=== PATIENT | female | born 1985 | race Caucasian/White ===

== ENCOUNTER 2016-07-13 17:30 | Emergency (ER) | payer MEDICAID ==
[2016-07-13] MEDS ORDERED: IBUPROFEN 800 MG TABLET PO ONE (17:38)
--- NOTE | 2016-07-13 17:38 | ER Document Report ---
ED Medical Screen (RME) - General Stated Complaint: BACK PAIN Notes: patient is a 31 year old female p/w low back pain worse with movement, taking muscle relaxer and naproxen. she denies any urinary symptoms, h/o kidney stones. I have greeted and performed a rapid initial assessment of this patient. A comprehensive ED assessment and evaluation of the patient, analysis of test results and completion of the medical decision making process will be conducted by additional ED providers. - Related Data Allergies/Adverse Reactions: No Known Allergies Allergy (Verified 07/13/16 17:36) Physical Exam - Vital signs Vitals: Temp Pulse Resp BP Pulse Ox 98.5 F 77 14 145/83 H 99 07/13/16 17:33 07/13/16 17:33 07/13/16 17:33 07/13/16 17:33 07/13/16 17:33 Course - Vital Signs Vital signs: Temp Pulse Resp BP Pulse Ox 98.5 F 77 14 145/83 H 99 07/13/16 17:33 07/13/16 17:33 07/13/16 17:33 07/13/16 17:33 07/13/16 17:33
[2016-07-13 18:11] LABS: APPEARANCE,URINE SLIGHTLY-CLOUDY; BILIRUBIN,URINE NEGATIVE (NEGATIVE); GLUCOSE, URINE NEGATIVE (NEGATIVE); KETONES,URINE NEGATIVE (NEGATIVE); LEUKOCYTE ESTERASE,URINE NEGATIVE (NEGATIVE); NITRITE,URINE NEGATIVE (NEGATIVE); PROTEIN,URINE NEGATIVE (NEGATIVE); URINE SPECIFIC GRAVITY 1.024; UROBILINOGEN,URINE NEGATIVE mg/dL (<2.0)
--- NOTE | 2016-07-13 18:56 | ER Document Report ---
ED Neck/Back Problem - General Chief Complaint: Back Pain Stated Complaint: BACK PAIN Mode of Arrival: Ambulatory Information source: Patient TRAVEL OUTSIDE OF THE [place] IN LAST 30 DAYS: No - HPI Patient complains to provider of: Pain, Upper back Onset: Other - SEVERAL DAYS Onset: Gradual Timing: Constant Quality of pain: Burning Severity: Moderate Recent injury: No - NONE RECALLED Associated symptoms: Numbness/tingling - BILAT. FOREARMS & HANDS, INTERMITTENT Exacerbated by: Movement of neck Relieved by: Remaining still Similar symptoms previously: No Recently seen / treated by doctor: Yes - FOLLOWED FOR CALCIUM METABOLISM PROBLEM - Related Data Allergies/Adverse Reactions: No Known Allergies Allergy (Verified 07/13/16 17:36) Past Medical History - General Information source: Patient - Social History Smoking Status: Unknown if Ever Smoked Chew tobacco use (# tins/day): No Frequency of alcohol use: None Drug Abuse: None Lives with: Spouse/Significant other Family History: None Patient has suicidal ideation: No Patient has homicidal ideation: No - Past Medical History Cardiac Medical History: Reports: None Pulmonary Medical History: Reports: None EENT Medical History: Reports: None Endocrine Medical History: Reports: Other - HYPERPARATHYROIDISM, SURGICALLY TREATED Renal/ Medical History: Reports: None. Denies: Hx Peritoneal Dialysis Malignancy Medical History: Reports: None GI Medical History: Reports: None Musculoskeltal Medical History: Reports None Psychiatric Medical History: Reports: None Past Surgical History: Reports: Other - PARATHYROIDECTOMY Review of Systems - Review of Systems Constitutional: No symptoms reported EENT: No symptoms reported Cardiovascular: No symptoms reported Respiratory: No symptoms reported Gastrointestinal: No symptoms reported Genitourinary: No symptoms reported Female Genitourinary: denies: Musculoskeletal: See HPI, Back pain Skin: No symptoms reported Neurological/Psychological: See HPI, Numbness Physical Exam - Vital signs Vitals: Temp Pulse Resp BP Pulse Ox 98.5 F 77 14 145/83 H 99 07/13/16 17:33 07/13/16 17:33 07/13/16 17:33 07/13/16 17:33 07/13/16 17:33 Interpretation: Hypertensive. No: Tachycardic, Tachypneic - General General appearance: Appears well, Alert In distress: None - HEENT Head: Normocephalic Eyes: Normal Conjunctiva: Normal Ears: Normal Nasal: Normal Mouth/Lips: Normal Mucous membranes: Normal Neck: Normal - Respiratory Respiratory status: No respiratory distress - Cardiovascular Rhythm: Regular - Abdominal Inspection: Obese - Back Back: Normal, Tender - MILD, PARASPINOUS MUSCLES OF UPPER THORACIC. - Extremities General upper extremity: Normal inspection General lower extremity: Normal inspection - Neurological Neuro grossly intact: Yes Cognition: Normal Orientation: AAOx4 - Psychological Associated symptoms: Normal affect, Normal mood - Skin Skin Temperature: Warm Skin Moisture: Dry Skin Color: Normal Skin Turgor: Elastic Course - Vital Signs Vital signs: Temp Pulse Resp BP Pulse Ox 98.5 F 77 14 145/83 H 99 07/13/16 17:33 07/13/16 17:33 07/13/16 17:33 07/13/16 17:33 07/13/16 17:33 - Laboratory Result Diagrams: 07/13/16 19:21 Discharge - Discharge Clinical Impression: Upper back pain Condition: Stable Disposition: HOME, SELF-CARE Additional Instructions: USE LIDOCAINE PATCH DIRECTED IF IT SEEMS TO BE HELPFUL. TAKE FLEXERIL DIRECTED FOR MUSCLE RELAXATION. YOU MAY TAKE NORCO IF NEEDED FOR MORE SEVERE PAIN. FOLLOW UP [facility] YOUR PRIMARY CARE PROVIDER. Prescriptions: Hydrocodone/Acetaminophen [[place] 5-325 mg Tablet] 1 tab PO Q4HP PRN #14 tablet PRN Reason: For Pain RX: Lidocaine [Lidoderm] 700 mg TP ASDIR PRN #3 adh..patch PRN Reason: Referrals: ALANIS SHEARER MD [Primary Care Provider] - Follow up as needed
[2016-07-13 19:54] LABS: ANION GAP 11 (5-19); BLOOD UREA NITROGEN 16 mg/dL (7-20); CALCIUM 9.9 mg/dL (8.4-10.2); CARBON DIOXIDE 27 mmol/L (22-30); CHLORIDE 105 mmol/L (98-107); CREATININE RESULT 0.86 mg/dL (0.52-1.25); GLUCOSE 91 mg/dL (75-110); POTASSIUM 4.2 mmol/L (3.6-5.0); SODIUM 142.8 mmol/L (137-145)
[2016-07-13] MEDS ORDERED: LIDOCAINE 5% (700 MG) TRANSDERMAL ADH..PATCH TP ONE (20:09)
[2016-07-13] MEDS ORDERED: LIDOCAINE 5% (700 MG) TRANSDERMAL ADH..PATCH ONE (20:51)
[2016-07-13 21:10] VITALS: BP 144/98
== END 2016-07-13 21:10 | disposition home or self-care (01) ==
LOC: ER 17:30
DX: M54.6 Pain in thoracic spine (principal); M54.9 Dorsalgia, unspecified
CPT/HCPCS: 99283; 36415; 81025; 80048; 81001; J3490

== ENCOUNTER 2016-07-27 13:21 | Emergency (ER) | payer MEDICAID ==
[2016-07-27 13:33] VITALS: BP 156/79
[2016-07-27] MEDS ORDERED: HYDROCODONE/ACETAMINOPHEN 5-325 MG TABLET PO ONE (14:49)
[2016-07-27 15:41] LABS: APPEARANCE,URINE CLOUDY; BILIRUBIN,URINE NEGATIVE (NEGATIVE); GLUCOSE, URINE NEGATIVE (NEGATIVE); KETONES,URINE NEGATIVE (NEGATIVE); LEUKOCYTE ESTERASE,URINE NEGATIVE (NEGATIVE); NITRITE,URINE NEGATIVE (NEGATIVE); PROTEIN,URINE NEGATIVE (NEGATIVE); URINE SPECIFIC GRAVITY 1.023; UROBILINOGEN,URINE NEGATIVE mg/dL (<2.0)
--- NOTE | 2016-07-27 16:32 | ER Document Report ---
ED General - General Chief Complaint: Flank Pain Stated Complaint: BACK PAIN Mode of Arrival: Ambulatory Information source: Patient Notes: 31-year-old female history kidney stones presents with complaints of three-day duration of left flank pain. Patient notes she was seen at an outside facility diagnosed with a 2 mm stone in the left kidney but none in the ureter. Patient was treated with Toradol and states she felt complaints but she did not receive pain medication. Patient denies any fevers or chills admits to mild nausea without vomiting Patient has a history of parathyroid surgery Patient's urologist is in [place] TRAVEL OUTSIDE OF THE [place] IN LAST 30 DAYS: No - HPI Onset: Last week Onset/Duration: Intermittent Quality of pain: Achy Severity: Mild Pain Level: 1 Associated symptoms: Nausea, Other Exacerbated by: Denies Relieved by: Denies Similar symptoms previously: Yes Recently seen / treated by doctor: Yes - Related Data Allergies/Adverse Reactions: No Known Allergies Allergy (Verified 07/27/16 13:31) Past Medical History - Social History Smoking Status: Never Smoker Cigarette use (# per day): No Chew tobacco use (# tins/day): No Smoking Education Provided: No Family History: None Patient has suicidal ideation: No Patient has homicidal ideation: No Renal/ Medical History: Denies: Hx Peritoneal Dialysis Past Surgical History: Reports: Other - PARATHYROIDECTOMY Review of Systems - Review of Systems Notes: REVIEW OF SYSTEMS: CONSTITUTIONAL : Denies fever, chills, or sweats. Denies recent illness. EENT: Denies eye, ear, throat, or mouth pain or symptoms. Denies nasal or sinus congestion or discharge. Denies throat, tongue, or mouth swelling or difficulty swallowing. CARDIOVASCULAR: Denies chest pain. Denies palpitations or racing or irregular heart beat. Denies ankle edema. RESPIRATORY: Denies cough, cold, or chest congestion. Denies shortness of breath, difficulty breathing, or wheezing. GASTROINTESTINAL: Admits to flank pain GENITOURINARY: Admits to blood in urine FEMALE GENITOURINARY: Denies vaginal bleeding, heavy or abnormal periods, irregular periods. Denies vaginal discharge or odor. MUSCULOSKELETAL: Denies back or neck pain or stiffness. Denies joint pain or swelling. SKIN: Denies rash, lesions or sores. HEMATOLOGIC : Denies easy bruising or bleeding. LYMPHATIC: Denies swollen, enlarged glands. NEUROLOGICAL: Denies confusion or altered mental status. Denies passing out or loss of consciousness. Denies dizziness or lightheadedness. Denies headache. Denies weakness or paralysis or loss of use of either side. Denies problems with gait or speech. Denies sensory loss, numbness, or tingling. Denies seizures. PSYCHIATRIC: Denies anxiety or stress. Denies depression, suicidal ideation, or homicidal ideation. ALL OTHER SYSTEMS REVIEWED AND NEGATIVE. Dictation was performed using [employer] voice recognition software PHYSICAL EXAMINATION: GENERAL: Well-appearing, well-nourished and in no acute distress. HEAD: Atraumatic, normocephalic. EYES: Pupils equal round and reactive to light, extraocular movements intact, conjunctiva are normal. ENT: Nares patent, oropharynx clear without exudates. Moist mucous membranes. NECK: Normal range of motion, supple without lymphadenopathy LUNGS: Breath sounds clear to auscultation bilaterally and equal. No wheezes rales or rhonchi. HEART: Regular rate and rhythm without murmurs ABDOMEN: Soft, nontender, nondistended abdomen. No guarding, no rebound. No masses appreciated. Female : deferred Musculoskeletal: Mild CVA tenderness NEUROLOGICAL: Cranial nerves grossly intact. Normal speech, normal gait. Normal sensory, motor exams PSYCH: Normal mood, normal affect. SKIN: Warm, Dry, normal turgor, no rashes or lesions noted. Physical Exam - Vital signs Vitals: Temp Pulse Resp BP Pulse Ox 98.4 F 78 18 156/79 H 100 07/27/16 13:32 07/27/16 13:32 07/27/16 13:32 07/27/16 13:32 07/27/16 13:32 Course - Re-evaluation Re-evalutation: 07/27/16 16:29 Urinalysis is consistent with hematuria, patient is noted to have had a few narcotic prescriptions in the past year. She will be given limited pain control in the emergency department otherwise she is stable for discharge After performing a Medical Screening Examination, I estimate there is LOW risk for ACUTE APPENDICITIS, BOWEL OBSTRUCTION, ACUTE CHOLECYSTITIS, PERFORATED DIVERTICULITIS, INCARCERATED HERNIA, PANCREATITIS, PELVIC INFLAMMATORY DISEASE, PERFORATED ULCER, ECTOPIC , or TUBO-OVARIAN ABSCESS, thus I consider the discharge disposition reasonable. Also, there is no evidence or peritonitis , sepsis, or toxicity. The patient and I have discussed the diagnosis and risks , and we agree with discharging home with close follow-up with the understanding that symptoms and presentations can change. We also discussed returning to the Emergency Department immediately if new or worsening symptoms occur. We have discussed the symptoms which are most concerning (e.g., bloody stool, fever, changing or worsening pain, vomiting) that necessitate immediate return. - Vital Signs Vital signs: Temp Pulse Resp BP Pulse Ox 98.4 F 78 18 156/79 H 100 07/27/16 13:32 07/27/16 13:32 07/27/16 13:32 07/27/16 13:32 07/27/16 13:32 - Laboratory Laboratory results interpreted by me: 07/27/16 15:05 Urine Blood MODERATE H Discharge - Discharge Clinical Impression: Hematuria, Flank pain Condition: Stable Disposition: HOME, SELF-CARE Instructions: Abdominal Pain ([facility]) Additional Instructions: Follow up with your physician tomorrow for further care or return to the ED IMMEDIATELY if symptoms worsen or new concerns occur Prescriptions: Hydrocodone/Acetaminophen [[place] 5-325 mg Tablet] 1 tab PO Q6 #10 tablet Ondansetron [Zofran Odt 4 mg Tablet] 1 - 2 tab PO Q4H PRN #15 tab.rapdis PRN Reason: For Nausea/Vomiting
== END 2016-07-27 16:38 | disposition home or self-care (01) ==
LOC: ER 13:21
DX: N20.0 Calculus of kidney (principal); R10.9 Unspecified abdominal pain; R11.0 Nausea; R31.9 Hematuria, unspecified
CPT/HCPCS: 81001; 81025; 99284